=== PATIENT | female | born 1990 | race Caucasian/White ===

== ENCOUNTER 2021-10-09 08:12 | Inpatient (IN) | payer MEDICAID, OTHER ==
[~2021-10-09] VITALS: Ht 172.7 cm; Wt 64.4 kg
[2021-10-09] MEDS ORDERED: LORAZEPAM 1MG TABLET PO ONE (09:00)
[2021-10-09] MEDS ORDERED: CEFTRIAXONE SODIUM 1 G/VIAL IM ONE (09:00)
[2021-10-09] MEDS ORDERED: DOXYCYCLINE HYCLATE 100MG CAPSULE PO ONE (09:00)
[2021-10-09] MEDS ORDERED: ACETAMINOPHEN 325MG TABLET PO ONE (09:15)
[2021-10-09 09:16] LABS: HEMATOCRIT. 37.8 % (36.0-48.0); HEMOGLOBIN. 12.8 g/dL (12.0-16.0); MEAN CORPUSCULAR HEMOGLOBIN 33.8 pg (28.0-32.0); MEAN CORPUSCULAR VOLUME 100.1 fL (81.0-99.0); MEAN PLATELET VOLUME 6.7 fl (7.4-10.4); PLATELET 249 x1000/uL (130-400); RED BLOOD CELL COUNT 3.78 mill/uL (4.2-5.4); RED CELL DISTRIBUTION WIDTH 14.6 % (11.6-14.6)
[2021-10-09 09:26] LABS: CHLORIDE 105 mEq/L (98-107)
[2021-10-09 09:30] LABS: HCG SCREEN NEGATIVE
[2021-10-09 09:35] LABS: ETHANOL BLOOD 33 mg/dL
[2021-10-09 10:05] LABS: PLATELET ESTIMATE NORMAL
[2021-10-09 11:19] LABS: CLARITY URINE CLOUDY (CLEAR); COLOR URINE YELLOW (YELLOW); KETONES URINE NEGATIVE (NEGATIVE); LEUKOCYTE ESTERASE URINE 2+ (NEGATIVE); NITRITE URINE NEGATIVE (NEGATIVE); OCCULT BLOOD URINE NEGATIVE (NEGATIVE); PH URINE 6.5 (4.5-8.0); PROTEIN URINE NEGATIVE (NEGATIVE); SPECIFIC GRAVITY URINE 1.003 (1.005-1.030); UROBILINOGEN URINE 0.2 E.U./dL (0.2-1.0)
[2021-10-09] MEDS ORDERED: OLANZAPINE 5MG TABLET PO SCH (11:30)
[2021-10-09 11:58] LABS: *BARBITURATES SCREEN URINE NEGATIVE (NEGATIVE); *BENZODIAZEPINES SCREEN URINE NEGATIVE (NEGATIVE); *COCAINE SCREEN URINE NEGATIVE (NEGATIVE); CANNABINOID URINE SCREEN NEGATIVE (NEGATIVE); METHADONE URINE SCREEN NEGATIVE (NEGATIVE); OPIATES URINE SCREEN NEGATIVE (NEGATIVE); PHENCYCLIDINE URINE SCREEN NEGATIVE (NEGATIVE)
[2021-10-09 12:01] LABS: *AMPHETAMINES SCREEN URINE PRESUMTIVE POSITIVE (NEGATIVE)
[2021-10-09] MEDS ORDERED: OLANZAPINE 5MG TABLET PO NR (13:15)
[2021-10-09] MEDS ORDERED: RALTEGRAVIR 400MG TABLET PO SCH (14:00)
[2021-10-09] MEDS ORDERED: TENOFOVIR 300MG TABLET PO SCH (14:00)
[2021-10-09] MEDS ORDERED: HEPATITIS B VIRUS VACCINE-PF 10 MCG/0.5 VIAL IM NR (14:00)
[2021-10-09] MEDS ORDERED: EMTRICITABINE 200MG CAPSULE PO SCH (14:00)
[2021-10-09] MEDS ORDERED: MAGNESIUM/ALUMINUM HYDROXIDE/SIMETHICONE 30ML UDC PO PRN (18:15)
[2021-10-09] MEDS ORDERED: ONDANSETRON HCL 4MG/2ML INJ IV PRN (18:15)
[2021-10-09] MEDS ORDERED: HYDROCODONE/ACETAMINOPHEN 5/325MG TABLET PO PRN (18:15)
[2021-10-09] MEDS ORDERED: GUAIFENESIN 200MG/10ML SUGAR FREE UDC PO PRN (18:15)
[2021-10-09] MEDS ORDERED: CLONIDINE 0.1MG TABLET PO PRN (18:15)
[2021-10-09] MEDS ORDERED: ACETAMINOPHEN 325MG TABLET PO PRN ×2 (18:15)
[2021-10-09] MEDS ORDERED: NALOXONE HCL 0.4MG/ML VIAL IV PRN (18:30)
[2021-10-09] MEDS: ENOXAPARIN 40MG/0.4ML SYR SUBCUT SCH (18:57)
[2021-10-10] VITALS (8 sets, daily range): BP systolic 96–125; BP diastolic 57–71
[2021-10-10] MEDS ORDERED: ALPR0.5T PO (01:28)
[2021-10-10 06:09] LABS: HIV SCREEN 4G Non Reactive (Non Reactive)
[2021-10-10 08:21] LABS: HEMATOCRIT. 36.3 % (36.0-48.0); HEMOGLOBIN. 12.1 g/dL (12.0-16.0); MEAN CORPUSCULAR HEMOGLOBIN 33.7 pg (28.0-32.0); MEAN CORPUSCULAR VOLUME 100.7 fL (81.0-99.0); MEAN PLATELET VOLUME 7.5 fl (7.4-10.4); PLATELET 222 x1000/uL (130-400); RED CELL DISTRIBUTION WIDTH 14.9 % (11.6-14.6)
[2021-10-10 09:22] LABS: CHLORIDE 104 mEq/L (98-107)
[2021-10-10 09:38] LABS: PHOSPHORUS 4.7 mg/dL (2.5-4.9)
[2021-10-10 09:42] LABS: HEPATITIS B SURFACE ANTIGEN NEGATIVE
[2021-10-10] MEDS: LORAZEPAM 2MG/ML CPJ IV PRN ×3 (10:17→22:27)
[2021-10-10 10:20] LABS: ATYPICAL LYMPHOCYTES 1
[2021-10-10 10:21] LABS: PLATELET ESTIMATE NORMAL
[2021-10-10] MEDS: ENOXAPARIN 40MG/0.4ML SYR SUBCUT SCH (18:14)
[2021-10-10] MEDS: CITALOPRAM HYDROBROMIDE 10MG TABLET PO SCH (18:21)
[2021-10-10] MEDS: QUETIAPINE FUMARATE 50MG TABLET PO SCH (20:54)
[2021-10-11] VITALS: BP 114/62
[2021-10-11 04:00] VITALS: BP 91/55
[2021-10-11 08:30] VITALS: BP 98/64
[2021-10-11] MEDS: CITALOPRAM HYDROBROMIDE 10MG TABLET PO SCH (09:57)
[2021-10-11] MEDS: LORAZEPAM 2MG/ML CPJ IV PRN ×2 (11:52→19:28)
[2021-10-11 12:00] VITALS: BP 101/67
[2021-10-11 16:00] VITALS: BP 109/67
[2021-10-11] MEDS: NICOTINE 14MG PATCH TD SCH (16:42)
[2021-10-11] MEDS: ENOXAPARIN 40MG/0.4ML SYR SUBCUT SCH (17:26)
[2021-10-11 20:00] VITALS: BP 106/66
[2021-10-11] MEDS: QUETIAPINE FUMARATE 50MG TABLET PO SCH (21:07)
[2021-10-12] VITALS: BP 97/56
[2021-10-12 04:00] VITALS: BP 102/66
[2021-10-12 08:00] VITALS: BP 94/66
[2021-10-12] MEDS: CITALOPRAM HYDROBROMIDE 10MG TABLET PO SCH (08:29)
[2021-10-12] MEDS: NICOTINE 14MG PATCH TD SCH (08:29)
[2021-10-12] MEDS: LORAZEPAM 2MG/ML CPJ IV PRN ×2 (11:33→18:45)
[2021-10-12 12:00] VITALS: BP 106/62
[2021-10-12 16:00] VITALS: BP 103/73
[2021-10-12] MEDS: ENOXAPARIN 40MG/0.4ML SYR SUBCUT SCH (17:22)
[2021-10-12 20:00] VITALS: BP 113/69
[2021-10-12] MEDS: QUETIAPINE FUMARATE 50MG TABLET PO SCH (21:18)
[2021-10-13] VITALS: BP 102/59
[2021-10-13] MEDS: LORAZEPAM 2MG/ML CPJ IV PRN (03:51)
[2021-10-13 04:00] VITALS: BP 97/61
[2021-10-13 08:00] VITALS: BP 91/55
[2021-10-13] MEDS: CITALOPRAM HYDROBROMIDE 10MG TABLET PO SCH (08:16)
[2021-10-13] MEDS: NICOTINE 14MG PATCH TD SCH (08:16)
[2021-10-13 09:40] LABS: HEMATOCRIT. 35.9 % (36.0-48.0); HEMOGLOBIN. 11.9 g/dL (12.0-16.0); MEAN CORPUSCULAR HEMOGLOBIN 33.6 pg (28.0-32.0); MEAN CORPUSCULAR VOLUME 101.5 fL (81.0-99.0); MEAN PLATELET VOLUME 7.5 fl (7.4-10.4); PLATELET 316 x1000/uL (130-400); RED BLOOD CELL COUNT 3.53 mill/uL (4.2-5.4); RED CELL DISTRIBUTION WIDTH 15.1 % (11.6-14.6)
[2021-10-13 10:03] LABS: CHLORIDE 109 mEq/L (98-107)
[2021-10-13] MEDS: LORAZEPAM 0.5MG TABLET PO PRN ×2 (11:37→20:29)
[2021-10-13 12:00] VITALS: BP 106/76
[2021-10-13 13:31] LABS: PLATELET ESTIMATE NORMAL
[2021-10-13] MEDS ORDERED: QUET50TA PO (14:27)
[2021-10-13] MEDS ORDERED: CITA10TA16 PO (14:27)
[2021-10-13 16:00] VITALS: BP 100/67
[2021-10-13] MEDS: ENOXAPARIN 40MG/0.4ML SYR SUBCUT SCH (17:01)
[2021-10-13 20:00] VITALS: BP 110/71
[2021-10-13] MEDS: QUETIAPINE FUMARATE 50MG TABLET PO SCH (21:21)
[2021-10-14] VITALS: BP 101/62
[2021-10-14 04:00] VITALS: BP 95/48
[2021-10-14 08:00] VITALS: BP 99/54
[2021-10-14] MEDS: LORAZEPAM 0.5MG TABLET PO PRN ×2 (08:47→17:04)
[2021-10-14] MEDS: NICOTINE 14MG PATCH TD SCH (08:47)
[2021-10-14] MEDS: CITALOPRAM HYDROBROMIDE 10MG TABLET PO SCH (08:47)
[2021-10-14 12:00] VITALS: BP 107/71
[2021-10-14 16:00] VITALS: BP 107/67
[2021-10-14] MEDS: ENOXAPARIN 40MG/0.4ML SYR SUBCUT SCH (17:33)
[2021-10-14 20:00] VITALS: BP 111/68
[2021-10-14] MEDS: QUETIAPINE FUMARATE 50MG TABLET PO SCH (20:50)
[2021-10-15] VITALS: BP 96/55
[2021-10-15 04:00] VITALS: BP 98/56
[2021-10-15 08:00] VITALS: BP 98/67
[2021-10-15] MEDS: CITALOPRAM HYDROBROMIDE 10MG TABLET PO SCH (09:26)
[2021-10-15] MEDS: NICOTINE 14MG PATCH TD SCH (09:26)
[2021-10-15] MEDS: LORAZEPAM 0.5MG TABLET PO PRN ×2 (09:30→20:02)
[2021-10-15 12:00] VITALS: BP 87/51
[2021-10-15 16:00] VITALS: BP 101/68
[2021-10-15] MEDS: ENOXAPARIN 40MG/0.4ML SYR SUBCUT SCH (18:07)
[2021-10-15 20:00] VITALS: BP 102/77
[2021-10-15] MEDS: QUETIAPINE FUMARATE 50MG TABLET PO SCH (21:21)
[2021-10-16] VITALS: BP 93/63
[2021-10-16 08:00] VITALS: BP 97/55
[2021-10-16] MEDS: CITALOPRAM HYDROBROMIDE 10MG TABLET PO SCH (09:00)
[2021-10-16] MEDS: LORAZEPAM 0.5MG TABLET PO PRN (10:04)
[2021-10-16] MEDS: NICOTINE 14MG PATCH TD SCH (10:04)
[2021-10-16 12:20] VITALS: BP 103/58
[2021-10-16 12:48] VITALS: BP 97/55
== END 2021-10-16 13:05 | disposition home or self-care (01) | DRG 815 ==
LOC: EDBD 08:12 → ER 08:12 → EDBEDREQ 15:32 → 7WST 15:33 → EDBEDREQTM 15:44 → EDBEDREQ 15:44 → SUPCPDRO 18:01 → ENRESERV 22:49 → 6EST 10-14 11:29
PROVIDERS: ADMIT Internal Medicine; ATTEND Internal Medicine
DX: T74.21XA Adult sexual abuse, confirmed, initial encounter (principal); K76.0 Fatty (change of) liver, not elsewhere classified; F17.210 Nicotine dependence, cigarettes, uncomplicated; S90.32XA Contusion of left foot, initial encounter; F31.9 Bipolar disorder, unspecified; F41.1 Generalized anxiety disorder; F42.9 Obsessive-compulsive disorder, unspecified; F43.10 Post-traumatic stress disorder, unspecified; N28.1 Cyst of kidney, acquired; F41.0 Panic disorder [episodic paroxysmal anxiety]; G47.00 Insomnia, unspecified; X58.XXXA Exposure to other specified factors, initial encounter; R74.01 Elevation of levels of liver transaminase levels; N39.0 Urinary tract infection, site not specified; Z20.822 Contact with and (suspected) exposure to COVID-19; M25.562 Pain in left knee; Z79.899 Other long term (current) drug therapy; Z59.00 Homelessness unspecified; Y93.89 Activity, other specified; Y92.89 Other specified places as the place of occurrence of the external cause; Y99.8 Other external cause status; F19.10 Other psychoactive substance abuse, uncomplicated
CPT/HCPCS: 36415; 73630; 76700; 80048; 80053; 80076; 80305; 80320; 81003; 83735; 84100; 84703; 85025; 86592; 86705; 86709; 86803; 87340; 87389; 87426; 90743; 93005; 99285; J0696; J1650; J2060; G0480